=== PATIENT | female | born 1970 | race Caucasian/White ===

== ENCOUNTER 2018-07-03 14:42 | Emergency (ER) | payer OTHER ==
[~2018-07-03] VITALS: Ht 170.2 cm; Wt 97.7 kg
[2018-07-03 14:47] VITALS: Ht 170.2 cm; Wt 97.7 kg
[2018-07-03] MEDS ORDERED: METOPROLOL TART25 MG PO (14:52)
[2018-07-03] MEDS ORDERED: SYNTHROID25 MCG PO (14:53)
[2018-07-03 16:18] LABS: BASOPHILS 0.2 % (0-2); EOSINOPHILS 2.8 % (0-7); HEMOGLOBIN 13.2 g/dL (12-16); IMMATURE GRANULOCYTES 0.2 % (0-5); LYMPHOCYTES 31.1 % (15-50); MCH 30.9 pg (26.0-34.0); MCHC 33.8 g/dL (31.0-37.0); MCV 91.3 fL (80.0-100.0); MEAN PLATELET VOLUME 11.1 fL (7.4-10.4); MONOCYTES 7.8 % (2-11); NEUTROPHILS 57.9 % (40-80); PLATELET COUNT 211 10x3/uL (130-400); RBC 4.27 10x6/uL (4.00-5.40); RDW 13.1 % (11.5-14.5); WBC 5.8 10x3/uL (4.8-10.8)
[2018-07-03 16:22] LABS: INR 1.06 (0.85-1.17); PROTIME 13.3 SECONDS (11.6-15.0)
[2018-07-03 16:23] LABS: APTT 26.4 SECONDS (22.8-39.4)
[2018-07-03 16:24] LABS: ALBUMIN 3.6 g/dL (3.4-5.0); ALKALINE PHOSPHATASE 73 U/L (46-116); ALT (SGPT) 96 U/L (10-68); BILIRUBIN - TOTAL 0.28 mg/dL (0.2-1.3); CALC OSMOLALITY 281 mosm/kg (275-300); CALCIUM 8.7 mg/dL (8.5-10.1); CARBON DIOXIDE 27.6 mmol/L (21.0-32.0); CHLORIDE - SERUM 104 mmol/L (98-107); GLUCOSE 89 mg/dL (74-106); POTASSIUM - SERUM 3.5 mmol/L (3.5-5.1); PROTEIN - SERUM 7.7 g/dL (6.4-8.2); SODIUM 141 mmol/L (136-145); UREA NITROGEN 19 mg/dL (7-18); eGFR NON AFRICAN AMERICAN 63 mL/min (90-120)
[2018-07-03 16:38] LABS: CKMB 0.6 U/L (0.0-3.6); CREATINE KINASE 81 UL (21-215); THYROID STIMULATING HORMONE 1.43 uIU/mL (0.36-3.74)
[2018-07-03 16:44] LABS: TROPONIN-I < 0.017 ng/mL (0.000-0.060)
[2018-07-03] MEDS ORDERED: FIORICET/ESGIC1 TAB PO (18:18)
[2018-07-03 18:40] VITALS: BP 147/85
== END 2018-07-03 18:40 | disposition home or self-care (01) ==
LOC: D.ER 14:42
PROVIDERS: Family Medicine
DX: E06.1 Subacute thyroiditis (principal)